=== PATIENT | female | born 1945 | race Caucasian/White ===

== ENCOUNTER 2017-04-28 11:47 | Inpatient (IN) | payer OTHER ==
[~2017-04-28] VITALS: Ht 165.1 cm; Wt 69.2 kg
[2017-04-28] MEDS ORDERED: NEXIUM20 MG PO (12:08)
[2017-04-28] MEDS ORDERED: AMOXICILLIN500 MG PO (12:09)
[2017-04-28 12:21] LABS: BASOPHIL COUNT 0.1 K/uL (0-0.1); EOSINOPHIL (%) 0.9 % (0-5); EOSINOPHIL COUNT 0.1 K/uL (0-0.3); HEMATOCRIT 45.5 % (36.0-46.0); IMMATURE GRANULOCYTE (%) 0.8 % (0.0-0.7); IMMATURE GRANULOCYTE COUNT 0.1 K/uL; INSTRUMENT ABS NEUTROPHIL CT 13.5 K/uL; LYMPHOCYTE COUNT 1.5 K/uL (1.0-2.8); MCH 27.7 PG (29.0-34.0); MCHC 32.7 G/DL (30.0-36.0); MCV 84.7 FL (83-99); MEAN PLAT.VOLUME 10.5 uM^3 (9.5-12.4); MONOCYTE (%) 5.2 % (3-12); MONOCYTE COUNT 0.8 K/uL (0-0.8); NEUTROPHIL (%) 83.3 % (45-76); NEUTROPHIL COUNT 13.5 K/uL (1.8-6.4); PLATELET COUNT 348 K/uL (156-360); RBC DIS.WIDTH-CV 14.1 % (11.8-14.6); RBC DIS.WIDTH-SD 43.2 % (39-53); RED BLOOD COUNT 5.37 M/uL (3.80-5.20); WHITE BLOOD COUNT 16.2 K/uL (4.1-10.2)
[2017-04-28 12:31] LABS: CHLORIDE 100 mEq/L (99-109); POTASSIUM 3.7 mEq/L (3.7-5.4); SODIUM 140 mEq/L (136-147)
[2017-04-28 12:33] LABS: GLUCOSE 269 mg/dL (70-99)
[2017-04-28 12:34] LABS: ANION GAP 12 MEQ/L (2-14)
[2017-04-28 12:35] LABS: TOTAL BILIRUBIN 0.4 mg/dL (0.0-1.0)
[2017-04-28 12:36] LABS: ALKALINE PHOSPHATASE 126 IU/L (3-129)
[2017-04-28 12:37] LABS: GFR ESTIMATE (CALCULATED) > 59 mL/min/
[2017-04-28 12:38] LABS: UREA NITROGEN (BUN) 9 mg/dL (9-23)
[2017-04-28 12:41] LABS: TROP-I INTERPRETATION NEGATIVE; TROPONIN-I < 0.01 ng/mL (0.0-0.30)
[2017-04-28 13:13] LABS: HDL CHOLESTEROL 46 MG/DL (Desirable>=50); LDL CHOLESTEROL 126 mg/dL (Desirable<100); NON-HDL CHOLESTEROL 174 mg/dL (Desirable<160); TOTAL CHOLESTEROL 220 mg/dL (Desirable<200); TRIGLYCERIDES 240 MG/DL (Normal: <150)
[2017-04-28 13:29] LABS: Estimated Average Glucose 217 mg/dL (70-123); HEMOGLOBIN A1c (GLYCOHEMOGLOB) 9.2 % HGB (Below 5.7)
[2017-04-28 13:44] LABS: ADD MIUA? NO; BILIRUBIN NEGATIVE; BLOOD NEGATIVE; COLOR COLORLESS ((YELLOW)); GLUCOSE (STRIP) >=500; KETONES NEGATIVE; LEUKOCYTES NEGATIVE; NITRITE NEGATIVE; PROTEIN (STRIP) 30; SPECIFIC GRAVITY 1.003 (1.000-1.030); UCUL ADDED? NO; UROBILINOGEN 0.2 MG/DL (0.2-1.0)
[2017-04-28 15:37] LABS: BASOPHIL COUNT 0.1 K/uL (0-0.1); EOSINOPHIL (%) 0.1 % (0-5); HEMATOCRIT 47.8 % (36.0-46.0); IMMATURE GRANULOCYTE (%) 0.8 % (0.0-0.7); IMMATURE GRANULOCYTE COUNT 0.2 K/uL; INSTRUMENT ABS NEUTROPHIL CT 18.5 K/uL; LYMPHOCYTE COUNT 2.3 K/uL (1.0-2.8); MCH 27.4 PG (29.0-34.0); MCHC 32.8 G/DL (30.0-36.0); MCV 83.6 FL (83-99); MEAN PLAT.VOLUME 10.7 uM^3 (9.5-12.4); MONOCYTE (%) 5.6 % (3-12); MONOCYTE COUNT 1.3 K/uL (0-0.8); NEUTROPHIL (%) 83.1 % (45-76); NEUTROPHIL COUNT 18.5 K/uL (1.8-6.4); PLATELET COUNT 383 K/uL (156-360); RBC DIS.WIDTH-CV 14.1 % (11.8-14.6); RBC DIS.WIDTH-SD 42.9 % (39-53); RED BLOOD COUNT 5.72 M/uL (3.80-5.20); WHITE BLOOD COUNT 22.3 K/uL (4.1-10.2)
[2017-04-28] MEDS ORDERED: TYLENOL EXTRA500 MG PO (15:37)
[2017-04-28 15:44] LABS: CHLORIDE 102 mEq/L (99-109); POTASSIUM 3.6 mEq/L (3.7-5.4); SODIUM 141 mEq/L (136-147)
[2017-04-28 15:46] LABS: GLUCOSE 200 mg/dL (70-99)
[2017-04-28 15:48] LABS: ANION GAP 13 MEQ/L (2-14); PROTHROMBIN TIME 10.3 (9.2-11.2); PTT 27.9 (25-32)
[2017-04-28 15:49] LABS: SERUM ETHYL ALCOHOL < 10 mg/dL
[2017-04-28 15:50] LABS: GFR ESTIMATE (CALCULATED) > 59 mL/min/
[2017-04-28 15:51] LABS: UREA NITROGEN (BUN) 9 mg/dL (9-23)
[2017-04-28 17:15] VITALS: BP 191/89
[2017-04-28 17:24] LABS: POINT-OF-CARE METER ID UU14188625
[2017-04-28 19:52] VITALS: BP 179/83
[2017-04-28 21:15] LABS: POINT-OF-CARE METER ID UU13113717
[2017-04-28 23:31] VITALS: BP 145/71; BP 168/80
[2017-04-29 02:41] LABS: POINT-OF-CARE METER ID UU14174225
[2017-04-29 04:08] VITALS: BP 196/90
[2017-04-29 05:56] LABS: HEMATOCRIT 43.7 % (36.0-46.0); MCH 28.3 PG (29.0-34.0); MCHC 33.4 G/DL (30.0-36.0); MCV 84.9 FL (83-99); MEAN PLAT.VOLUME 10.9 uM^3 (9.5-12.4); PLATELET COUNT 378 K/uL (156-360); RBC DIS.WIDTH-CV 14.5 % (11.8-14.6); RBC DIS.WIDTH-SD 44.3 % (39-53); RED BLOOD COUNT 5.15 M/uL (3.80-5.20); WHITE BLOOD COUNT 14.8 K/uL (4.1-10.2)
[2017-04-29 05:59] LABS: POINT-OF-CARE METER ID UU14188625
[2017-04-29 06:16] LABS: PROTHROMBIN TIME 10.3 (9.2-11.2); PTT 30.1 (25-32)
[2017-04-29 07:44] LABS: POINT-OF-CARE METER ID UU14188625
[2017-04-29 08:18] VITALS: BP 141/95
[2017-04-29 10:40] LABS: POINT-OF-CARE METER ID UU14188625
[2017-04-29 14:52] LABS: POINT-OF-CARE METER ID UU13113717
[2017-04-29 16:12] VITALS: BP 139/86
[2017-04-29 17:01] LABS: POINT-OF-CARE METER ID UU14188625
[2017-04-29 19:37] VITALS: BP 178/87
[2017-04-29 21:14] LABS: POINT-OF-CARE METER ID UU14174225
[2017-04-29 23:41] VITALS: BP 170/81
[2017-04-30 03:41] VITALS: BP 166/85
[2017-04-30 06:15] LABS: HEMATOCRIT 45.2 % (36.0-46.0); MCH 28.4 PG (29.0-34.0); MCHC 33.2 G/DL (30.0-36.0); MCV 85.6 FL (83-99); MEAN PLAT.VOLUME 10.9 uM^3 (9.5-12.4); PLATELET COUNT 348 K/uL (156-360); RBC DIS.WIDTH-CV 14.6 % (11.8-14.6); RBC DIS.WIDTH-SD 45.6 % (39-53); RED BLOOD COUNT 5.28 M/uL (3.80-5.20); WHITE BLOOD COUNT 12.2 K/uL (4.1-10.2)
[2017-04-30 06:39] LABS: ANION GAP 13 MEQ/L (2-14); CHLORIDE 101 MEQ/L (99-109); GFR ESTIMATE (CALCULATED) > 59 mL/min/; GLUCOSE 176 mg/dL (70-99); POTASSIUM 3.4 MEQ/L (3.7-5.4); SAMPLE HEMOLYSIS CHECK 0; SAMPLE ICTERIC CHECK 0; SAMPLE LIPEMIA CHECK 0; SODIUM 142 MEQ/L (136-147); UREA NITROGEN (BUN) 20 mg/dL (9-23)
[2017-04-30 07:32] LABS: POINT-OF-CARE METER ID UU13113717
[2017-04-30 07:34] VITALS: BP 175/89
[2017-04-30 11:54] LABS: POINT-OF-CARE METER ID UU13113717
[2017-04-30 12:06] VITALS: BP 189/96
[2017-04-30 15:56] VITALS: BP 146/81
[2017-04-30 16:21] LABS: C DIFF TOXIN NEGATIVE (NEGATIVE)
[2017-04-30 16:46] LABS: PROBE CHECK PASS; SPECIMEN PROCESSING CONTROL PASS
[2017-04-30 17:11] LABS: POINT-OF-CARE METER ID UU13113717
[2017-04-30 20:02] VITALS: BP 144/81
[2017-04-30 21:37] LABS: POINT-OF-CARE METER ID UU13113717
[2017-04-30 23:22] VITALS: BP 140/74
[2017-05-01 03:58] VITALS: BP 149/80
[2017-05-01 08:24] LABS: POINT-OF-CARE METER ID UU14188625
[2017-05-01] MEDS ORDERED: LEVEMIR100 UNIT/2 SC (10:45)
[2017-05-01] MEDS ORDERED: LISINOPRIL5 MG PO (10:45)
[2017-05-01] MEDS ORDERED: NICOTINE PATCH1 EAC1 TD (10:45)
[2017-05-01] MEDS ORDERED: ASPIR-LOW81 MG PO (10:45)
[2017-05-01] MEDS ORDERED: ATORVASTATIN CA80 MG PO (10:45)
[2017-05-01] MEDS ORDERED: AMLODIPINE BESYL5 MG PO (10:45)
[2017-05-01] MEDS ORDERED: DIAZEPAM2 MG PO (10:45)
[2017-05-01 12:14] LABS: POINT-OF-CARE METER ID UU14188625
[2017-05-01 12:48] VITALS: BP 176/79
[2017-05-01] MEDS ORDERED: MOTRIN400 MG PO (14:29)
[2017-05-01] MEDS ORDERED: LOVENOX40 MG/0.4 SC (14:29)
[2017-05-01] MEDS ORDERED: LABETALOL H5 MG/1 M1 IV (14:30)
[2017-05-01] MEDS ORDERED: NOVOLOG PE100 UNITS/ SC (15:15)
== END 2017-05-01 13:00 | DRG 64 ==
LOC: EME → EDBD 11:47 → EDOF 15:07 → 5SOUTH 15:07
PROVIDERS: Emergency Medicine; Hospitalist; Internal Medicine
DX: I63.512 Cerebral infarction due to unspecified occlusion or stenosis of left middle cerebral artery (principal); G93.41 Metabolic encephalopathy; Q28.2 Arteriovenous malformation of cerebral vessels; G81.91 Hemiplegia, unspecified affecting right dominant side; R13.10 Dysphagia, unspecified; E11.65 Type 2 diabetes mellitus with hyperglycemia; F17.210 Nicotine dependence, cigarettes, uncomplicated; F41.0 Panic disorder [episodic paroxysmal anxiety]; I10 Essential (primary) hypertension; I16.0 Hypertensive urgency; R29.810 Facial weakness; R91.1 Solitary pulmonary nodule; R45.1 Restlessness and agitation; I69.391 Dysphagia following cerebral infarction; Z91.14 Patient's other noncompliance with medication regimen; Z91.19 Patient's noncompliance with other medical treatment and regimen; Z79.82 Long term (current) use of aspirin; Z79.4 Long term (current) use of insulin
CPT/HCPCS: 70450; 70496; 70498; 70544; 70551; 71020; 74230; 80048; 80048 91; 80053; 80061; 80306 90; 81003; 82948; 83036; 84484; 85025; 85025 91; 85027; 85610; 85730; 87040; 87493; 92523 GN; 92610 GN; 92611 GN; 93005; 93306; 97530 GO; 99281; 99285; G0480; J0360; J1650; J1815; J2060; J3360; J7030

== ENCOUNTER 2017-04-30 11:35 | Inpatient (IN) | payer OTHER ==
[~2017-04-30] VITALS: Ht 162.6 cm; Wt 69.4 kg
[~2017-04-30 11:35] MED LIST: AMOXICILLIN500 MG PO; NEXIUM20 MG PO; TYLENOL EXTRA500 MG PO
[2017-05-01] MEDS ORDERED: ASPIR-LOW81 MG PO (10:45)
[2017-05-01] MEDS ORDERED: NICOTINE PATCH1 EAC1 TD (10:45)
[2017-05-01] MEDS ORDERED: DIAZEPAM2 MG PO (10:45)
[2017-05-01] MEDS ORDERED: LEVEMIR100 UNIT/2 SC (10:45)
[2017-05-01] MEDS ORDERED: ATORVASTATIN CA80 MG PO (10:45)
[2017-05-01] MEDS ORDERED: LISINOPRIL5 MG PO (10:45)
[2017-05-01] MEDS ORDERED: AMLODIPINE BESYL5 MG PO (10:45)
[2017-05-01] MEDS ORDERED: MOTRIN400 MG PO (14:29)
[2017-05-01] MEDS ORDERED: LOVENOX40 MG/0.4 SC (14:29)
[2017-05-01] MEDS ORDERED: LABETALOL H5 MG/1 M1 IV (14:30)
[2017-05-01 14:34] VITALS: BP 205/97
[2017-05-01 15:13] VITALS: BP 177/81
[2017-05-01] MEDS ORDERED: NOVOLOG PE100 UNITS/ SC (15:15)
[2017-05-01 17:25] LABS: POINT-OF-CARE METER ID UU14174215
[2017-05-01 18:59] LABS: ALKALINE PHOSPHATASE 87 IU/L (3-129); ANION GAP 13 MEQ/L (2-14); CHLORIDE 104 MEQ/L (99-109); GFR ESTIMATE (CALCULATED) > 59 mL/min/; GLUCOSE 210 mg/dL (70-99); SAMPLE HEMOLYSIS CHECK 0; SAMPLE ICTERIC CHECK 0; SAMPLE LIPEMIA CHECK 0; SODIUM 144 MEQ/L (136-147); TOTAL BILIRUBIN 0.5 MG/DL (0.0-1.0); UREA NITROGEN (BUN) 20 mg/dL (9-23)
[2017-05-01 19:00] LABS: HEMATOCRIT 44.6 % (36.0-46.0); MCH 28.3 PG (29.0-34.0); MCHC 32.7 G/DL (30.0-36.0); MCV 86.4 FL (83-99); MEAN PLAT.VOLUME 11.1 uM^3 (9.5-12.4); PLATELET COUNT 373 K/uL (156-360); RBC DIS.WIDTH-CV 14.6 % (11.8-14.6); RBC DIS.WIDTH-SD 46.4 % (39-53); RED BLOOD COUNT 5.16 M/uL (3.80-5.20); WHITE BLOOD COUNT 11.8 K/uL (4.1-10.2)
[2017-05-01 21:07] LABS: POINT-OF-CARE METER ID UU13113720
[2017-05-02 00:08] VITALS: BP 144/73
[2017-05-02 04:29] VITALS: BP 142/71
[2017-05-02 08:16] LABS: POINT-OF-CARE METER ID UU14174215; POINT-OF-CARE USER ID AHSSSJB31
[2017-05-02 11:44] LABS: POINT-OF-CARE METER ID UU14174215; POINT-OF-CARE USER ID AHSSSJB31
[2017-05-02 15:05] VITALS: BP 197/88
[2017-05-02 15:13] VITALS: BP 160/78
[2017-05-02 16:16] LABS: POINT-OF-CARE METER ID UU14174215
[2017-05-02 21:42] LABS: POINT-OF-CARE METER ID UU14174215
[2017-05-03 05:47] VITALS: BP 144/70
[2017-05-03 06:44] LABS: HEMATOCRIT 44.2 % (36.0-46.0); MCH 27.4 PG (29.0-34.0); MCHC 32.1 G/DL (30.0-36.0); MCV 85.3 FL (83-99); MEAN PLAT.VOLUME 10.5 uM^3 (9.5-12.4); PLATELET COUNT 346 K/uL (156-360); RBC DIS.WIDTH-CV 14.1 % (11.8-14.6); RBC DIS.WIDTH-SD 43.8 % (39-53); RED BLOOD COUNT 5.18 M/uL (3.80-5.20); WHITE BLOOD COUNT 10.6 K/uL (4.1-10.2)
[2017-05-03 07:07] LABS: POINT-OF-CARE METER ID UU13113712; POINT-OF-CARE USER ID AHSSSJB31
[2017-05-03 07:21] LABS: ALKALINE PHOSPHATASE 87 IU/L (3-129); ANION GAP 10 MEQ/L (2-14); CHLORIDE 105 MEQ/L (99-109); GFR ESTIMATE (CALCULATED) > 59 mL/min/; GLUCOSE 142 mg/dL (70-99); SAMPLE HEMOLYSIS CHECK 0; SAMPLE ICTERIC CHECK 0; SAMPLE LIPEMIA CHECK 0; SODIUM 142 MEQ/L (136-147); TOTAL BILIRUBIN 0.6 MG/DL (0.0-1.0); UREA NITROGEN (BUN) 14 mg/dL (9-23)
[2017-05-03 07:32] LABS: POTASSIUM 3.7 MEQ/L (3.7-5.4)
[2017-05-03 09:45] VITALS: BP 144/60
[2017-05-03 11:51] LABS: POINT-OF-CARE METER ID UU13113720
[2017-05-03 15:48] VITALS: BP 142/65
[2017-05-03 16:28] LABS: POINT-OF-CARE METER ID UU13113720
[2017-05-03 21:06] LABS: POINT-OF-CARE METER ID UU13113720
[2017-05-04 05:25] VITALS: BP 146/75
[2017-05-04 07:26] LABS: POINT-OF-CARE METER ID UU13113720; POINT-OF-CARE USER ID AHSSSJB31
[2017-05-04 11:48] LABS: POINT-OF-CARE METER ID UU13113720
[2017-05-04 15:34] VITALS: BP 176/83
[2017-05-04 16:30] VITALS: BP 184/85
[2017-05-04 17:01] LABS: POINT-OF-CARE METER ID UU13113720
[2017-05-04 21:40] LABS: POINT-OF-CARE METER ID UU13113720
[2017-05-05 04:38] VITALS: BP 139/67
[2017-05-05 07:13] LABS: POINT-OF-CARE METER ID UU13113712; POINT-OF-CARE USER ID AHSSSJB31
[2017-05-05 11:37] LABS: POINT-OF-CARE METER ID UU13113712; POINT-OF-CARE USER ID AHSSSJB31
[2017-05-05 15:06] VITALS: BP 140/67
[2017-05-05 16:41] LABS: POINT-OF-CARE METER ID UU13113720
[2017-05-05 21:19] LABS: POINT-OF-CARE METER ID UU13113720
[2017-05-06 05:52] VITALS: BP 129/74
[2017-05-06 06:34] LABS: POINT-OF-CARE METER ID UU13113720
[2017-05-06 11:54] LABS: POINT-OF-CARE METER ID UU13113720
[2017-05-06 16:17] VITALS: BP 170/70
[2017-05-06 16:39] LABS: POINT-OF-CARE METER ID UU13113712
[2017-05-06 21:49] LABS: POINT-OF-CARE METER ID UU13113712
[2017-05-07 05:35] VITALS: BP 170/74
[2017-05-07 07:06] LABS: POINT-OF-CARE METER ID UU13113712
[2017-05-07 12:12] LABS: POINT-OF-CARE METER ID UU13113720
[2017-05-07 15:09] VITALS: BP 141/66
[2017-05-07 16:57] LABS: POINT-OF-CARE METER ID UU13113720
[2017-05-07 21:16] LABS: POINT-OF-CARE METER ID UU13113712
[2017-05-08 04:50] VITALS: BP 135/63
[2017-05-08 07:21] LABS: POINT-OF-CARE METER ID UU13113712
[2017-05-08 12:00] LABS: POINT-OF-CARE METER ID UU13113712
[2017-05-08 16:26] LABS: POINT-OF-CARE METER ID UU13113712
[2017-05-08 17:14] VITALS: BP 130/67
[2017-05-08 21:04] LABS: POINT-OF-CARE METER ID UU13113712
[2017-05-09 06:26] VITALS: BP 126/60
[2017-05-09 06:36] LABS: POINT-OF-CARE METER ID UU13113712
[2017-05-09 12:03] LABS: POINT-OF-CARE METER ID UU13113720; POINT-OF-CARE USER ID ENVGAF
[2017-05-09 15:24] VITALS: BP 138/76
[2017-05-09 16:26] LABS: POINT-OF-CARE METER ID UU13113720; POINT-OF-CARE USER ID ENVGAF
[2017-05-09 21:17] LABS: POINT-OF-CARE METER ID UU13113712
[2017-05-10 06:06] LABS: POINT-OF-CARE METER ID UU13113720
[2017-05-10 06:24] VITALS: BP 141/68
[2017-05-10 11:08] LABS: POINT-OF-CARE METER ID UU13113712
[2017-05-10 15:45] VITALS: BP 167/75
[2017-05-10 16:19] LABS: POINT-OF-CARE METER ID UU13113712
[2017-05-10 21:14] LABS: POINT-OF-CARE METER ID UU13113712
[2017-05-11 07:56] LABS: POINT-OF-CARE METER ID UU13113720
[2017-05-11 12:16] LABS: POINT-OF-CARE METER ID UU13113720
[2017-05-11 13:39] VITALS: BP 142/64
[2017-05-11 16:30] LABS: POINT-OF-CARE METER ID UU13113720
[2017-05-11 21:32] LABS: POINT-OF-CARE METER ID UU13113720
[2017-05-12 05:29] VITALS: BP 122/60
[2017-05-12 07:31] LABS: POINT-OF-CARE METER ID UU13113712; POINT-OF-CARE USER ID AHSSSJB31
[2017-05-12 11:17] LABS: POINT-OF-CARE METER ID UU13113720; POINT-OF-CARE USER ID AHSSSJB31
[2017-05-12 15:25] VITALS: BP 126/67
[2017-05-12 16:26] LABS: POINT-OF-CARE METER ID UU13113720; POINT-OF-CARE USER ID 610211320
[2017-05-12 20:56] LABS: POINT-OF-CARE METER ID UU13113720
[2017-05-13 05:48] VITALS: BP 118/63
[2017-05-13 08:18] LABS: POINT-OF-CARE METER ID UU13113712; POINT-OF-CARE USER ID AHSSSJB31
[2017-05-13 11:51] LABS: POINT-OF-CARE METER ID UU13113712; POINT-OF-CARE USER ID AHSSSJB31
[2017-05-13 15:28] VITALS: BP 140/69
[2017-05-13 16:12] LABS: POINT-OF-CARE METER ID UU13113712; POINT-OF-CARE USER ID 610211320
[2017-05-13 21:16] LABS: POINT-OF-CARE METER ID UU13113712
[2017-05-14 05:04] VITALS: BP 122/62
[2017-05-14 06:36] LABS: HEMATOCRIT 44.2 % (36.0-46.0); MCH 28.5 PG (29.0-34.0); MCHC 32.8 G/DL (30.0-36.0); MEAN PLAT.VOLUME 11.1 uM^3 (9.5-12.4); PLATELET COUNT 297 K/uL (156-360); RBC DIS.WIDTH-CV 14.8 % (11.8-14.6); RBC DIS.WIDTH-SD 47.2 % (39-53); RED BLOOD COUNT 5.08 M/uL (3.80-5.20); WHITE BLOOD COUNT 9.3 K/uL (4.1-10.2)
[2017-05-14 06:50] LABS: POINT-OF-CARE METER ID UU13113712
[2017-05-14 07:07] LABS: ALKALINE PHOSPHATASE 77 IU/L (3-129); ANION GAP 11 MEQ/L (2-14); CHLORIDE 102 MEQ/L (99-109); GFR ESTIMATE (CALCULATED) > 59 mL/min/; GLUCOSE 142 mg/dL (70-99); POTASSIUM 4.1 MEQ/L (3.7-5.4); SAMPLE HEMOLYSIS CHECK 0; SAMPLE ICTERIC CHECK 0; SAMPLE LIPEMIA CHECK 0; SODIUM 141 MEQ/L (136-147); TOTAL BILIRUBIN 0.6 MG/DL (0.0-1.0); UREA NITROGEN (BUN) 12 mg/dL (9-23)
[2017-05-14 15:49] VITALS: BP 137/74
[2017-05-14 16:09] LABS: POINT-OF-CARE METER ID UU13113712
[2017-05-14] MEDS ORDERED: BACLOFEN10 MG PO (17:07)
[2017-05-14] MEDS ORDERED: AMLODIPINE BESYL5 MG PO (17:07)
[2017-05-14] MEDS ORDERED: GABAPENTIN100 MG PO (17:08)
[2017-05-14] MEDS ORDERED: BISACODYL5 MG PO (17:09)
[2017-05-14] MEDS ORDERED: POLYETHYLENE GL17 GM PO (17:09)
[2017-05-14] MEDS ORDERED: SENNA PLUS TAB1 EACH PO (17:10)
[2017-05-14] MEDS ORDERED: LIDOCAINE1 EACH TD (17:11)
[2017-05-14] MEDS ORDERED: FLEET ENEMA-AD118 ML PR (17:11)
== END 2017-05-14 18:12 | DRG 57 ==
LOC: 3WEST 11:35
PROVIDERS: Physical Medicine & Rehabilitation Pain Medicine; Psychiatry & Neurology Neurology
PROC: F07M0ZZ Range of Motion and Joint Mobility Treatment of Musculoskeletal System - Whole Body (ICD-10-PCS; principal; 2017-05-01)
DX: I69.351 Hemiplegia and hemiparesis following cerebral infarction affecting right dominant side (principal); I69.391 Dysphagia following cerebral infarction; R13.10 Dysphagia, unspecified; I69.322 Dysarthria following cerebral infarction; R26.2 Difficulty in walking, not elsewhere classified; R53.83 Other fatigue; I10 Essential (primary) hypertension; E11.9 Type 2 diabetes mellitus without complications; F32.1 Major depressive disorder, single episode, moderate; F41.0 Panic disorder [episodic paroxysmal anxiety]; F41.1 Generalized anxiety disorder; K59.00 Constipation, unspecified; E87.6 Hypokalemia; M54.5 Low back pain; M54.6 Pain in thoracic spine; M62.838 Other muscle spasm; R10.13 Epigastric pain; Z79.82 Long term (current) use of aspirin
CPT/HCPCS: 74230; 80053; 82948; 85027; 92507 GN; 92523 GN; 92526 GN; 92610 GN; 92611 GN; 97110 GO; 97112 GO; 97530 GP; G0283 GO; J1650; J1815